=== PATIENT | female | born 1965 ===

== ENCOUNTER 2018-09-30 08:30 | Outpatient (CLI) | payer OTHER ==
--- NOTE | 2018-09-30 09:13 | ULT ---
Soft tissue sonogram left hand HISTORY: Left hip pain. FINDINGS: Sonographic survey of the soft tissues about the left hand was performed. No solid or cysti c mass is visualized. No aggressive fluid collections. IMPRESSION: No sonographic abnormalities demonstrated on left hand soft tissue survey. Radiograph of the hand is not readily apparent on this PACS system. If patient has not had radiograph ic evaluation, please consider dedicated radiographic evaluation of the left hand.
== END 2018-09-30 08:31 | disposition home or self-care (01) ==
LOC: ULT 08:30
PROVIDERS: ATTEND Family Medicine
DX: M79.642 Pain in left hand (principal)
CPT/HCPCS: 76999